=== PATIENT | female | born 1990 | race Caucasian/White ===

== ENCOUNTER 2018-02-28 13:42 | Emergency (ER) | payer OTHER ==
[~2018-02-28] VITALS: Ht 172.7 cm; Wt 73.8 kg
[~2018-02-28 13:42] MED LIST: CYAN10005 PO
[2018-02-28 13:49] VITALS: BP 131/86
[2018-02-28 15:24] LABS: CULTURE INDICATED? YES; MICROSCOPIC INDICATED
[2018-02-28] MEDS ORDERED: CEFTRIAXONE 250 MG IM ONE (17:00)
[2018-02-28] MEDS ORDERED: AZITHROMYCIN 500 MG TABLET PO ONE (17:00)
[2018-02-28 17:28] LABS: CLUE CELLS NONE SEEN (NONE SEEN); WET PREP WBCS FEW (FEW)
[2018-02-28] MEDS ORDERED: CEFTRIAXONE 250 MG ONE (18:25)
[2018-02-28] MEDS ORDERED: AZITHROMYCIN 250 MG TABLET ONE (18:25)
== END 2018-02-28 18:38 | disposition home or self-care (01) ==
LOC: ED 17:17
DX: B37.3 Candidiasis of vulva and vagina (principal); A60.04 Herpesviral vulvovaginitis; K21.9 Gastro-esophageal reflux disease without esophagitis
CPT/HCPCS: 81001; 87086; 87210; 87491; 87591; 87808; 96372; 99284; J0696